=== PATIENT | male | born 1960 | race Caucasian/White ===

== ENCOUNTER 2019-01-24 08:49 | Emergency (ER) | payer BC ==
[2019-01-24 09:17] LABS: Absolute Lymphocytes (CBC) 1.6 K/uL (0.7-4.9); Absolute Monocytes 0.6 K/uL (0.1-1.3); Absolute Neutrophil 3.3 K/uL (1.8-8.0); Basophils % 1.1 % (0-1.3); Eosinophils % 2.3 % (0-4.4); Hematocrit 46.3 % (39.6-49.0); MPV 9.5 fL (7.6-11.3)
[2019-01-24 09:21] LABS: Protime INR 0.89
--- NOTE | 2019-01-24 10:01 | RAD REPORT ---
EXAM DESCRIPTION: RAD - Chest Single View - 01/24/2019 9:52 am CLINICAL HISTORY: CHEST PAIN Chest pain. COMPARISON: No comparisons FINDINGS: Portable technique limits examination quality. The lungs are grossly clear. The heart is upper limit of normal in size. No displaced fractures. IMPRESSION: No acute intrathoracic process suspected.
[2019-01-24 10:12] LABS: ALT/SGPT 67 U/L (12-78); AST/SGOT 31 U/L (15-37); Albumin 3.8 g/dL (3.4-5.0); Alkaline Phosphatase 64 U/L (45-117); BUN Blood Urea Nitrogen 30 mg/dL (7-18); Bicarbonate 28 mmol/L (21-32); Bilirubin Direct 0.1 mg/dL (0-0.2); Bilirubin Total 0.4 mg/dL (0.2-1.0); Glucose Level 387 mg/dL (74-106); Magnesium 1.9 mg/dL (1.8-2.4); NT PRO-BNP 36 pg/mL (<125); Potassium 4.2 mmol/L (3.5-5.1); Protein, Total 7.4 g/dL (6.4-8.2); Sodium Level 133 mmol/L (136-145); Troponin (Emerg Dept Use Only) < 0.02 ng/mL (0.0-0.045)
[2019-01-24] MEDS ORDERED: NA CHLORIDE 0.9% 1,000 ML ONE (10:55)
--- NOTE | 2019-01-24 10:56 | EKG ---
Test Date: 2019-01-24 Test Time: 08:57:19 Dielectric Embossing Machine Operator: BABITA MEASUREMENT RESULTS: Intervals: Rate: 84 TN: 166 QRSD: 84 QT: 360 QTc: 425 [place]: P: 43 TN: 166 QRS: 68 T: 46 INTERPRETIVE STATEMENTS: Normal sinus rhythm Septal infarct, age undetermined Abnormal ECG No previous ECG available for comparison Electronically Signed On 01-24-19 10:54:55 TRANSFORMER SHOP SUPERVISOR by Kiran Courtney
--- NOTE | 2019-01-24 12:44 | EDPHYS ---
Physician Documentation [facility] Name: Galindo Croft Age: 58 yrs Sex: Male : 1960 Arrival Date: 01/24/2019 Time: 08:56 Bed 7 Private MD: ED Physician Vinayak Nguyen HPI: 01/24 09:30 This 58 yrs old Male presents to ER via EMS with complaints of chest pain. kb 09:30 The patient or guardian reports chest pain that is located primarily in the substernal kb area. Onset: yesterday. The pain does not radiate. Associated signs and symptoms: The patient has no apparent associated signs or symptoms. The chest pain is described as dull, constant. Duration: The patient or guardian reports a single episode, that is still ongoing, and unchanged. Modifying factors: The symptoms are alleviated by nothing. the symptoms are aggravated by nothing. Severity of pain: At its worst the pain was mild in the emergency department the pain is unchanged. The patient has not experienced similar symptoms in the past. The patient has not recently seen a physician. Pt reports he woke up with pain to center of chest yesterday morning. Pain is 2/10 and unchanging. States it has been constant since onset and nothing makes it better or worse. Denies any other symptoms. Historical: - Allergies: 09:14 No Known Allergies; ph - Home Meds: 09:14 aspirin 81 mg Oral chew 1 tab once daily [Active]; Lantus 100 unit/mL Sub-Q soln 45 ph unit twice a day [Active]; Metoprolol Tartrate Oral [Active]; Hydrochlorothiazide Oral [Active]; Metformin Oral once daily [Active]; - PMHx: 09:14 Angina; cardiac stent; Diabetes - IDDM; Hypertension; ph - PSHx: 09:14 cardiac stent; ph - Immunization history:: Adult Immunizations unknown. - Social history:: Smoking status: Patient/guardian denies using tobacco. - Ebola Screening: : No symptoms or risks identified at this time. ROS: 09:29 Constitutional: Negative for fever, chills, and weight loss, ENT: Negative for injury, kb pain, and discharge, Neck: Negative for injury, pain, and swelling, Respiratory: Negative for shortness of breath, cough, wheezing, and pleuritic chest pain, Abdomen/GI: Negative for abdominal pain, nausea, vomiting, diarrhea, and constipation, Back: Negative for injury and pain, : Negative for injury, bleeding, discharge, and swelling, MS/Extremity: Negative for injury and deformity, Skin: Negative for injury, rash, and discoloration, Neuro: Negative for headache, weakness, numbness, tingling, and seizure. 09:29 Cardiovascular: Positive for chest pain, of the mid-sternal area, Negative for edema, orthopnea, palpitations, paroxysmal nocturnal dyspnea. Exam: 09:29 Constitutional: This is a well developed, well nourished patient who is awake, alert, kb and in no acute distress. Head/Face: Normocephalic, atraumatic. Chest/axilla: Normal chest wall appearance and motion. Nontender with no deformity. No lesions are appreciated. Cardiovascular: Regular rate and rhythm with a normal S1 and S2. No gallops, murmurs, or rubs. Normal PMI, no JVD. No pulse deficits. Respiratory: Lungs have equal breath sounds bilaterally, clear to auscultation and percussion. No rales, rhonchi or wheezes noted. No increased work of breathing, no retractions or nasal flaring. Abdomen/GI: Soft, non-tender, with normal bowel sounds. No distension or tympany. No guarding or rebound. No evidence of tenderness throughout. Back: No spinal tenderness. No costovertebral tenderness. Full range of motion. Skin: Warm, dry with normal turgor. Normal color with no rashes, no lesions, and no evidence of cellulitis. MS/ Extremity: Pulses equal, no cyanosis. Neurovascular intact. Full, normal range of motion. Neuro: Awake and alert, GCS 15, oriented to person, place, time, and situation. Cranial nerves II-XII grossly intact. Motor strength 5/5 in all extremities. Sensory grossly intact. Cerebellar exam normal. Normal gait. Vital Signs: 09:06 BP 169 / 94; Pulse 85; Resp 18; Temp 98.0; Pulse Ox 97% on R/A; Weight 131.54 kg; Pain ph 2/10; 09:30 BP 139 / 79; Pulse 83; Resp 16; Pulse Ox 95% on R/A; ph 10:16 BP 117 / 81; Pulse 82; Resp 18; Pulse Ox 94% on R/A; ph 11:30 BP 128 / 78; Pulse 81; Resp 16; Pulse Ox 96% on R/A; ph 12:51 BP 144 / 83; Pulse 84; Resp 18; Temp 98.7; Pulse Ox 96% on R/A; Pain 1/10; ph MDM: 08:56 Patient medically screened. kb 09:28 The patient was not given aspirin in the Emergency Department. Patient reports taking kb aspirin within the past 24 hours. Data reviewed: vital signs, nurses notes. Data interpreted: Pulse oximetry: on room air is 97 %. Interpretation: normal. 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 01/24 08:56 Order name: Basic Metabolic Panel; Complete Time: 10:19 kb 01/24 08:56 Order name: CBC with Diff; Complete Time: 09:20 kb 01/24 08:56 Order name: LFT's; Complete Time: 10:19 kb 01/24 08:56 Order name: Magnesium; Complete Time: 10:19 kb 01/24 08:56 Order name: NT PRO-BNP; Complete Time: 10:19 kb 01/24 08:56 Order name: PT-INR; Complete Time: 09:41 kb 01/24 08:56 Order name: Troponin (emerg Dept Use Only); Complete Time: 10:19 kb 01/24 08:56 Order name: XRAY Chest (1 view); Complete Time: 10:03 kb 01/24 08:56 Order name: EKG; Complete Time: 08:57 kb 01/24 08:56 Order name: Cardiac monitoring; Complete Time: 09:35 kb 01/24 08:56 Order name: EKG - Nurse/Tech; Complete Time: 09:35 kb 01/24 11:42 Order name: Troponin (emerg Dept Use Only); Complete Time: 12:42 kb 01/24 11:42 Order name: EKG; Complete Time: 11:42 kb 01/24 08:56 Order name: IV Saline Lock; Complete Time: 09:35 kb 01/24 08:56 Order name: Labs collected and sent; Complete Time: 09:35 kb 01/24 08:56 Order name: O2 Per Protocol; Complete Time: 09:36 kb 01/24 08:56 Order name: O2 Sat Monitoring; Complete Time: 09:36 kb 01/24 11:42 Order name: EKG - Nurse/Tech; Complete Time: 12:28 kb Administered Medications: 10:52 Drug: NS 0.9% 1000 ml Route: IV; Rate: 1000 ml; Site: right antecubital; ph 13:12 Follow up: Response: No adverse reaction; IV Status: Completed infusion ph Disposition: 01/25 06:38 Co-signature as Attending Physician, Vinayak Nguyen MD I agree with the assessment and kdr plan of care. Disposition: 01/24/19 12:42 Discharged to Home. Impression: Chest pain, unspecified. - Condition is Stable. - Discharge Instructions: Nonspecific Chest Pain, [id number]. - Medication Reconciliation Form, Thank You Letter, Antibiotic Education, Prescription Opioid Use, Work release form form. - Follow up: Emergency Department; When: As needed; Reason: Worsening of condition. Follow up: Private Physician; When: 2 - 3 days; Reason: Recheck today's complaints, Continuance of care, Re-evaluation by your physician. Signatures: Dispatcher [employer] EDMS Lauren Hunt, INTEGRITY ENGINEER-C INTEGRITY ENGINEER-Vinayak Buchanan MD MD kdr Hall, Patricia RN RN ph Corrections: (The following items were deleted from the chart) 01/24 13:18 12:42 01/24/2019 12:42 Discharged to Home. Impression: Chest pain, unspecified. ph Condition is Stable. Forms are Medication Reconciliation Form, Thank You Letter, Antibiotic Education, Prescription Opioid Use. Follow up: Emergency Department; When: As needed; Reason: Worsening of condition. Follow up: Private Physician; When: 2 - 3 days; Reason: Recheck today's complaints, Continuance of care, Re-evaluation by your physician. kb
--- NOTE | 2019-01-24 12:44 | ER ---
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 Transition of care: patient was not received from another setting of care. Onset of symptoms was January 24, 2019. Risk Assessment: Do you want to hurt yourself or someone else? Patient reports no desire to harm self or others. Initial Sepsis Screen: Does the patient meet any 2 criteria? No. Patient's initial sepsis screen is negative. Does the patient have a suspected source of infection? No. Patient's initial sepsis screen is negative. Care prior to arrival: Medication(s) given: ASA, 81 mg, x 4. 09:03 Method Of Arrival: EMS: [facility] 09:03 Acuity: NICOLETTE 3 ph Historical: - Allergies: 09:14 No Known Allergies; ph - Home Meds: 09:14 aspirin 81 mg Oral chew 1 tab once daily [Active]; Lantus 100 unit/mL Sub-Q soln 45 ph unit twice a day [Active]; Metoprolol Tartrate Oral [Active]; Hydrochlorothiazide Oral [Active]; Metformin Oral once daily [Active]; - PMHx: 09:14 Angina; cardiac stent; Diabetes - IDDM; Hypertension; ph - PSHx: 09:14 cardiac stent; ph - Immunization history:: Adult Immunizations unknown. - Social history:: Smoking status: Patient/guardian denies using tobacco. - Ebola Screening: : No symptoms or risks identified at this time. Screenin:10 Abuse screen: Denies threats or abuse. Denies injuries from another. Nutritional ph screening: No deficits noted. Tuberculosis screening: No symptoms or risk factors identified. Fall Risk None identified. Assessment: 09:16 General: Appears in no apparent distress. comfortable, obese, Behavior is calm, ph cooperative, appropriate for age, Denies fever, feeling ill. Pain: Complains of pain in mid-sternal area Pain does not radiate. Pain currently is 2 out of 10 on a pain scale. Quality of pain is described as pressure. Neuro: Level of Consciousness is awake, alert, obeys commands, Oriented to person, place, time, situation. Cardiovascular: Reports chest pain, Denies lightheadedness, nausea, palpitations, shortness of breath, Capillary refill < 3 seconds in bilateral fingers Patient's skin is warm and dry. Respiratory: Airway is patent Respiratory effort is even, unlabored, Respiratory pattern is regular, symmetrical, Denies shortness of breath. GI: Patient currently denies abdominal pain, nausea, vomiting. Derm: Skin is intact, is healthy with good turgor, Skin is pink, warm \\T\\ dry. Musculoskeletal: Circulation, motion, and sensation intact. Range of motion: intact in all extremities. 10:16 Reassessment: Patient appears in no apparent distress at this time. Patient and/or ph family updated on plan of care and expected duration. Pain level reassessed. Patient is alert, oriented x 3, equal unlabored respirations, skin warm/dry/pink. Pt resting quietly, awaiting lab results, VSS. 11:45 Reassessment: Patient appears in no apparent distress at this time. Patient and/or ph family updated on plan of care and expected duration. Pain level reassessed. Patient is alert, oriented x 3, equal unlabored respirations, skin warm/dry/pink. Pt resting quietly, states, " I bent over and belched some and the pain is a little better." Rates 1/10 and denies SOB or nausea, awaiting repeat cardiac enzymes which are to be drawn at 1200. 13:13 Reassessment: Patient appears in no apparent distress at this time. Patient and/or ph family updated on plan of care and expected duration. Pain level reassessed. Patient is alert, oriented x 3, equal unlabored respirations, skin warm/dry/pink. Pt instructed to follow up w/ PCP and d/c home. Vital Signs: 09:06 BP 169 / 94; Pulse 85; Resp 18; Temp 98.0; Pulse Ox 97% on R/A; Weight 131.54 kg; Pain ph 2/10; 09:30 BP 139 / 79; Pulse 83; Resp 16; Pulse Ox 95% on R/A; ph 10:16 BP 117 / 81; Pulse 82; Resp 18; Pulse Ox 94% on R/A; ph 11:30 BP 128 / 78; Pulse 81; Resp 16; Pulse Ox 96% on R/A; ph 12:51 BP 144 / 83; Pulse 84; Resp 18; Temp 98.7; Pulse Ox 96% on R/A; Pain 1/10; ph ED Course: 08:56 Patient arrived in ED. em1 08:56 Lauren Hunt FNP-C is [facility]. kb 08:56 Vinayak Nguyen MD is Attending Physician. kb 09:03 Radha Garcia, KYE is Primary Nurse. ph 09:05 EKG done, by 3d technologist. reviewed by Lauren SAMPSON. at1 09:06 Triage completed. ph 09:15 Arm band placed on. ph 09:15 Patient has correct armband on for positive identification. Placed in gown. Bed in low ph position. Call light in reach. Side rails up X 1. school bus monitor on. Pulse ox on. NIBP on. 09:37 No provider procedures requiring assistance completed. ph 09:52 X-ray completed. Portable x-ray completed in exam room. Patient tolerated procedure mh1 well. 09:53 XRAY Chest (1 view) In Process Unspecified. EDMS 12:09 EKG done, by 3d technologist. reviewed by Lauren SAMPSON Repeat EKG. at1 12:12 Repeat lab(s) drawn. by co, sent to lab. 3 13:13 IV discontinued, intact, bleeding controlled, No redness/swelling at site. Pressure ph dressing applied. Administered Medications: 10:52 Drug: NS 0.9% 1000 ml Route: IV; Rate: 1000 ml; Site: right antecubital; ph 13:12 Follow up: Response: No adverse reaction; IV Status: Completed infusion ph Outcome: 12:42 Discharge ordered by . kb 13:12 Discharged to home ambulatory. ph 13:12 Condition: good 13:12 Discharge instructions given to patient, Instructed on discharge instructions, follow up and referral plans. Demonstrated understanding of instructions, follow-up care. 13:18 Patient left the ED. ph Signatures: Dispatcher [employer] EDMS Lauren Hunt FNP-C FNP-Dee Santos 1 Cesar Denis em1 Shirley Robbins, division leader EKG Tat1 Radha Garcia, RN RN ph Salina Matamoros 3
== END 2019-01-24 13:18 | disposition home or self-care (01) ==
LOC: ER 08:49
DX: R07.9 Chest pain, unspecified (principal); E11.9 Type 2 diabetes mellitus without complications; I10 Essential (primary) hypertension; Z79.82 Long term (current) use of aspirin; Z79.4 Long term (current) use of insulin
CPT/HCPCS: 36415; 71045; 80048; 80076; 83735; 83880; 84484; 85025; 85610; 93005; J7030